=== PATIENT | female | born 1995 | race Caucasian/White ===

== ENCOUNTER 2022-09-02 13:55 | Emergency (ER) | payer BC, SELFPAY ==
[2022-09-02 13:56] VITALS: BP 115/73; PULSE 74; RESP 18; TEMP 36.9; O2SAT 100; BMI 37.9
--- NOTE | 2022-09-02 14:24 | EXP.UTC ---
Discharge Plan Disposition Patient Disposition: Home, Self-Care Condition: Good Prescriptions Prescriptions: New amoxicillin 875 mg tablet 875 mg PO Q12H Qty: 20 0RF fluticasone propionate [Flonase Allergy Relief] 50 mcg/actuation spray,suspension 1 - 2 spray intranasal DAILY Qty: 16 0RF Rx Instructions: administer into each nostril Daily No Action levothyroxine 50 mcg tablet 15 mcg PO DAILY Label Comments: TAKE 1 TABLET BY MOUTH ONCE DAILY BEFORE BREAKFAST escitalopram oxalate 20 mg tablet 20 mg PO DAILY Label Comments: TAKE 1 TABLET BY MOUTH ONCE DAILY Referrals Follow up/Referrals: Provider,Referral, MD [Primary Care Provider] - See instructions Activity Restrictions/Add. Instructions Additional Instructions/Restrictions: *Monitor Temp, Over the counter Motrin or Tylenol as directed/as needed Tylenol every 4 hours and Motrin every 6 hours (as long as your family doctor has told you that you can take it) for fever or pain. and straight to ER if unable to lower temp less than 101.0 after medication given *Warm salt water gargles may help to soothe the throat and clear drainage from throat *Humidifier/Vaporizer *Flonase 2 sprays in each nostril daily but be aware that it may take 2-3 days before you notice improvement Take medication as prescribed Follow up IMMEDIATELY for new or worsening symptoms or no Noticeable improvement over the next 48-72 hours. 911 for difficulty breathing or swallowing Clinical Impressions Clinical Impression: Otitis media Instructions Patient Instructions: Middle Ear Infection, Ear Infections (Alternative Therapy), Amoxicillin Discharge ED Provider: Ivelisse Edmonds [facility] General Stated complaint: Ear pain Mode of Arrival: Ambulatory Source of Information: Patient Limitations: No Limitations Time Seen by Provider: 09/02/22 14:24 Description of Symptoms (Recalled from Triage Doc. by RN): Possible double ear infection for 4 days. HEENT Symptoms (Recalled from RN notes): Yes Resp Symptoms (Recalled from RN notes): No Skin Symptoms (Recalled from RN notes): No MS Symptoms (Recalled from RN notes): No Functional Status (Recalled from RN notes): wnl History of Present Illness Provider Complaint: Patient states that she has been having bilateral ear pain for the last 4-5 days States that today her right ear was hurting worse and felt like the pain was going down into her right jaw area so she came in to get it checked Related Data Home Medications Medication Instructions Recorded Confirmed escitalopram oxalate 20 mg tablet 20 mg PO DAILY Anxiety 09/02/22 09/02/22 levothyroxine 50 mcg tablet 15 mcg PO DAILY thyroid 09/02/22 09/02/22 Previous Rx's Medication Instructions Recorded amoxicillin 875 mg tablet 875 mg PO Q12H #20 tabs 09/02/22 fluticasone propionate 50 1 - 2 spray intranasal DAILY #16 09/02/22 mcg/actuation nasal grams spray,suspension (Flonase Allergy Relief) Allergies Allergy/AdvReac Type Severity Reaction Status Date / Time No Known Allergies Allergy Verified 09/02/22 14:08 Worker's Comp Is this a Worker's Comp case?: No [facility] Disclaimer: The information contained in this section may have been updated after the patient was seen, as this information can be updated by other users. Social History Smoking Status: Unknown if ever smoked alcohol intake: never current occupational status: employed Travel in the last 8 weeks: None ROS Obtained: Yes All systems reviewed & no additional complaints except as documented and Yes Systems reviewed as appropriate & no additional complaints except as documented Constitutional Constitutional: Reports system reviewed and no additional complaints, except as documented, Reports as per HPI and Denies fever(s) ENT Ears, Nose, Mouth, and Throat: Reports system reviewed and no additional complaints, except as documented, Reports as per HPI and Reports ot
[2022-09-02 14:37] VITALS: BP 115/73; PULSE 74; RESP 18; TEMP 36.9; O2SAT 100
== END 2022-09-02 14:40 | disposition home or self-care (01) ==
PROVIDERS: Emergency Provider Nurse Practitioner
DX: H66.93 Otitis media, unspecified, bilateral (principal)
CPT/HCPCS: 99204; 99212; G0463

== ENCOUNTER 2022-09-28 11:00 | Emergency (ER) | payer BC, SELFPAY ==
[2022-09-28 11:00] VITALS: BP 117/75; PULSE 98; RESP 16; TEMP 36.7; O2SAT 97; BMI 38.0
--- NOTE | 2022-09-28 11:24 | EXP.UTC ---
Discharge Plan Disposition Patient Disposition: Home, Self-Care Condition: Good Prescriptions Prescriptions: New amoxicillin [amoxicillin] 875 mg tablet 875 mg PO Q12H Qty: 20 0RF methylprednisolone 4 mg Tablets,Dose Pack 4 mg PO DIRECTED Qty: 21 0RF emwarylbrokkvcq-nnvninsfv-AV [Bromfed DM] 2-30-10 mg/5 mL Syrup 5 ml PO Q6H PRN (Reason: Cough) Qty: 240 0RF No Action levothyroxine 50 mcg tablet 15 mcg PO DAILY Patient Comments: TAKE 1 TABLET BY MOUTH ONCE DAILY BEFORE BREAKFAST escitalopram oxalate 20 mg tablet 20 mg PO DAILY Patient Comments: TAKE 1 TABLET BY MOUTH ONCE DAILY amoxicillin 875 mg tablet 875 mg PO Q12H Qty: 20 0RF fluticasone propionate [Flonase Allergy Relief] 50 mcg/actuation spray,suspension 1 - 2 spray intranasal DAILY Qty: 16 0RF Rx Instructions: administer into each nostril Daily Referrals Follow up/Referrals: Provider,Referral, MD [Primary Care Provider] - See instructions Activity Restrictions/Add. Instructions Additional Instructions/Restrictions: Drink plenty of fluids. Take tylenol or ibuprofen for pain or fever. Take the medications as directed. Follow up with your regular doctor. GO TO THE ER FOR ANY WORSENING SYMPTOMS Clinical Impressions Clinical Impression: Otitis media, Pharyngitis Instructions Patient Instructions: Middle Ear Infection Discharge ED Provider: Trevon Yi [facility] General Stated complaint: sore throat, bilateral ear pain Mode of Arrival: Ambulatory Source of Information: Patient Limitations: No Limitations Time Seen by Provider: 09/28/22 11:23 Description of Symptoms (Recalled from Triage Doc. by RN): Patient reports sore throat and bilateral ear pain since yesterday. HEENT Symptoms (Recalled from RN notes): Yes Resp Symptoms (Recalled from RN notes): No Skin Symptoms (Recalled from RN notes): No MS Symptoms (Recalled from RN notes): No Functional Status (Recalled from RN notes): wnl History of Present Illness Provider Complaint: She states that she has had bilateral ear pain and sore throat for the past 2 days. Related Data Home Medications Medication Instructions Recorded Confirmed escitalopram oxalate 20 mg tablet 20 mg PO DAILY Anxiety 09/02/22 09/02/22 levothyroxine 50 mcg tablet 15 mcg PO DAILY thyroid 09/02/22 09/02/22 Previous Rx's Medication Instructions Recorded amoxicillin 875 mg tablet 875 mg PO Q12H #20 tabs 09/02/22 fluticasone propionate 50 1 - 2 spray intranasal DAILY #16 09/02/22 mcg/actuation nasal grams spray,suspension (Flonase Allergy Relief) amoxicillin 875 mg tablet 875 mg PO Q12H #20 tabs 09/28/22 lggemzobssohycg-quwvhbxypgkkjyd-ND 5 ml PO Q6H PRN Cough #240 mL 09/28/22 2 mg-30 mg-10 mg/5 mL oral syrup (Bromfed DM) methylprednisolone 4 mg tablets in 4 mg PO DIRECTED #21 tabs 09/28/22 a dose pack Allergies Allergy/AdvReac Type Severity Reaction Status Date / Time No Known Allergies Allergy Verified 09/02/22 14:08 Worker's Comp Is this a Worker's Comp case?: No [facility] Disclaimer: The information contained in this section may have been updated after the patient was seen, as this information can be updated by other users. Social History (Updated 09/02/22 @ 14:31 by Ivelisse Edmonds APRN) Smoking Status: Unknown if ever smoked alcohol intake: never current occupational status: employed Travel in the last 8 weeks: None ROS Obtained: Yes All systems reviewed & no additional complaints except as documented Constitutional Constitutional: Reports chills and Reports fever(s) Eyes Eyes: Denies eye discharge ENT Ears, Nose, Mouth, and Throat: Reports as per HPI Cardiovascular Cardiovascular: Denies chest pain Respiratory Respiratory: Denies chest congestion and Reports cough Gastrointestinal Gastrointestingal: Reports nausea; Denies abdominal pain, constipation, cramping, diarrhea or vomiting Musculoskel
[2022-09-28 11:25] LABS: UTC Strep Screen (Rapid) Negative (Negative)
[2022-09-28 11:54] VITALS: BP 117/75; PULSE 98; RESP 16; TEMP 36.7; O2SAT 97
== END 2022-09-28 11:55 | disposition home or self-care (01) ==
PROVIDERS: Emergency Provider Nurse Practitioner Family
DX: H66.93 Otitis media, unspecified, bilateral (principal); J02.9 Acute pharyngitis, unspecified
CPT/HCPCS: 87880; 99212; 99214; G0463

== ENCOUNTER 2023-08-12 17:45 | Emergency (ER) | payer BC, SELFPAY ==
[2023-08-12 19:20] VITALS: BP 122/83; PULSE 84; RESP 20; TEMP 37; O2SAT 97; BMI 38.0
--- NOTE | 2023-08-12 19:32 | ED_ITS ---
Discharge Plan Disposition Patient Disposition: Home, Self-Care Condition: Good Prescriptions Prescriptions: No Action levothyroxine 50 mcg tablet 15 mcg PO DAILY Patient Comments: TAKE 1 TABLET BY MOUTH ONCE DAILY BEFORE BREAKFAST escitalopram oxalate 20 mg tablet 20 mg PO DAILY Patient Comments: TAKE 1 TABLET BY MOUTH ONCE DAILY Referrals Follow up/Referrals: Provider,Referral, [Primary Care Provider] - See instructions Activity Restrictions/Add. Instructions Additional Instructions/Restrictions: Suture instructions: ?You have required stitches today. Please read the following instructions so you know how to care for them: ?1. Keep wound area dry for the first 24 hours. 2?? May clean gently with mild soap and water, after 48 hours to prevent crusting over suture knots. 3. You may shower if your provider gives permission but do not take a bath until the skin is healed.. 4. Never leave a wet dressing or Band-Aid on your stitches as this allows bacteria to reach the area and may cause infection. Band-aids can cause the wound to sweat and not recommended to wear for long periods of time Watch for signs of infection: ? Increasing redness, tenderness or warmth around the suture site ? Unusual swelling around the site ? Appearance of pus around each suture or any red streaks ? Fever If you develop any of the above signs or symptoms of infection, Follow up with Family Physician immediately 5. Suture removal in __10-14__days 6. Return to [facility] or follow up with family doctor for removal. This can be done by any medical provider dur?ing regular hours on Thursday through Thursday, by appointment. Clinical Impressions Clinical Impression: Laceration Instructions Patient Instructions: DI for Laceration Repair Discharge ED Provider: Ivelisse Edmonds [facility] [place] General Stated complaint: AO 08/12/23 1730 Laceration left little finger Mode of Arrival: Ambulatory Source of Information: Patient Limitations: No Limitations Time Seen by Provider: 08/12/23 19:32 Description of Symptoms (Recalled from Triage Doc. by RN): PATIENT C/O LACERATION TO LEFT PINKY FINGER. SHE STATES SHE WAS WASHING DISHES THIS EVENING AND A GLASS BROKE. PATIENT UNSURE IF TDAP IS UP TO DATE HEENT Symptoms (Recalled from RN notes): No Resp Symptoms (Recalled from RN notes): No Skin Symptoms (Recalled from RN notes): Yes MS Symptoms (Recalled from RN notes): No Functional Status (Recalled from RN notes): WNL History of Present Illness Provider Complaint: Patient states that she was washing dishes when the glass broke and cut her on her left little pinky finger States that she was having a hard time getting it to stop bleeding so she came in Related Data Home Medications Medication Instructions Recorded Confirmed escitalopram oxalate 20 mg tablet 20 mg PO DAILY Anxiety 09/02/22 08/12/23 levothyroxine 50 mcg tablet 15 mcg PO DAILY thyroid 09/02/22 08/12/23 Allergies Allergy/AdvReac Type Severity Reaction Status Date / Time No Known Allergies Allergy Verified 09/02/22 14:08 Worker's Comp Is this a Worker's Comp case?: No [facility] Disclaimer: The information contained in this section may have been updated after the patient was seen, as this information can be updated by other users. Medical History (Updated 08/12/23 @ 19:38 by Ivelisse Edmonds APRN) Thyroid disease Anxiety Surgical History (Updated 08/12/23 @ 19:29 by Rosa Thrasher RN) History of tonsillectomy Social History (Updated 09/02/22 @ 14:31 by Ivelisse Edmonds APRN) Smoking Status: Unknown if ever smoked alcohol intake: never current occupational status: employed Travel in the last 8 weeks: None ROS Obtained: Yes All systems reviewed & no additional complaints except as documented and Yes Systems reviewed as appropriate & no additional complaints except as documented Constitutional Constitutional: Reports system reviewed and no additional complaints, except as documented and Reports as per HPI ENT Ears, Nose, Mouth, and Throat: Reports system reviewed and no additional complaints, except as documented and Reports as per HPI Cardiovascular Cardiovascular: Reports system reviewed and no additional complaints, except as documented and Reports as per HPI Respiratory Respiratory: Reports system reviewed and no additional complaints, except as documented and Reports as per HPI Musculoskeletal Musculoskeletal: Reports system reviewed and no additional complaints, except as documented and Reports as per HPI Integumentary/Breasts Skin/Breast: Reports system reviewed and no additional complaints, except as documented, Reports as per HPI and Reports other (laceration to left little finger ) Physical Exam General General appearance: alert and in no apparent distress ENT ENT exam: Present mucous membranes moist Respiratory Respiratory exam: Present normal lung sounds bilaterally; Absent respiratory distress or wheezes Cardiovascular Cardiovascular exam: Present regular rate, normal rhythm and normal heart sounds Expanded Upper Extremity Exam Left: Hand exam: Present laceration Hand L/R front image: 2 1. laceration (v shaped lac noted no active bleeding) Neurological Exam Neurological exam: Present alert, oriented X3 and normal gait Medical Decision Making Bobby Inquiry Pt receiving controlled substance: No Bobby was queried for this patient: No Vital Signs: 08/12/23 19:20 Temperature 98.6 F Temperature Source Oral Pulse Rate [Left Brachial] 84 Respiratory Rate 20 Blood Pressure [Left Arm] 122/83 Blood Pressure Mean [Left Arm] 96 Blood Pressure Source [Left Arm] Automatic Cuff Blood Pressure Position [Left Arm] Sitting 02 Sat by Pulse Oximetry 97 Oxygen Delivery Method Room Air Orders (Tests/Meds): ED MEDICATIONS Generic Name Dose Route Start Last Admin Trade Name Freq PRN Reason Stop Dose Admin Tetanus/Reduced Diphtheria/Acell Pertussis 0.5 ml 08/12/23 19:29 Tet/Diphth/Pert-Adult 0.5ml Syringe IM 08/12/23 19:30 .ONCE ONE Medical Decision Narrative: V shaped lac noted to left little finger denies numbness able to move and bend finger and make fist Procedures Laceration Laceration 1: Site: finger Side (If applicable): left Size (cm): 1.5 Description: flap Depth: simple, single layer Amount of anesthesia used (mL): 1 Pre-repair: wound explored and irrigated extensively Skin layer closed with: nylon Size (cm): 4-0 Number of sutures: 5 Technique: simple, interrupted and other (wound edges approximated well)
[2023-08-12] MEDS: TET/DIPHTH/PERT-ADULT 0.5ML SYRINGE 0.5 ML IM (19:40)
[2023-08-12] MEDS: LIDOCAINE 1% PF 2ML AMPULE 1 ML SQ (19:45)
[2023-08-12 19:58] VITALS: BP 122/83; PULSE 84; RESP 20; TEMP 37; O2SAT 97
== END 2023-08-12 20:03 | disposition home or self-care (01) ==
PROVIDERS: Emergency Provider Nurse Practitioner
DX: S61.217A Laceration without foreign body of left little finger without damage to nail, initial encounter (principal); W25.XXXA Contact with sharp glass, initial encounter; Z23 Encounter for immunization
CPT/HCPCS: 12001; 90471; 90715; 99213; 99214; G0463